=== PATIENT | male | born 1970 | race Caucasian/White ===

== ENCOUNTER 2023-12-30 06:36 | Outpatient (CLI) | payer OTHER ==
[2023-12-30 07:47] LABS: HEMATOCRIT 46.6 % (39.0-48.0); HEMOGLOBIN 15.8 g/dL (13-16.00); MEAN CELL VOLUME 82.6 fL (80.0-100.00); MEAN CORPUSCULAR HGB CONC 33.9 g/dl (32.0-36.0); PLATELET COUNT 253 K/uL (150-450); RED BLOOD COUNT 5.64 M/uL (4.00-6.00); RED CELL DISTRIBUTION WIDTH 13.7 % (11.5-14.5)
[2023-12-30 08:28] LABS: ALBUMIN 3.9 gm/dL (3.4-5.0); BILIRUBIN TOTAL 0.7 mg/dL (0.3-1.2); CALCIUM 9.2 mg/dL (8.5-10.1); CHOL HDL RATIO 3.9 (0-5.0); CREATININE SERUM 0.97 mg/dL (0.70-1.30); GFR 81.59; GLOBULINA 3.7 G/DL (2.4-3.5); POTASSIUM 3.56 mEq/L (3.5-5.1); T4 TOTAL 9.61 UG/DL (4.5-12.1); TOTAL PROTEIN 7.6 gm/dL (6.4-8.2); TSH 1.56 uIU/mL (0.358-3.74)
[2023-12-30 08:34] LABS: PROSTATIC SPECIFIC ANTIGEN 5.98 NG/ML (0.010-4.00)
[2023-12-30 09:12] LABS: URINE APPEARANCE Clear; URINE BILIRRUBIN Negative (NEGATIVE); URINE BLOOD Trace; URINE COLOR Yellow; URINE GLUCOSE Negative (NEGATIVE); URINE LEUKOCYTE Trace; URINE NITRATE Negative; URINE PROTEIN Negative (NEGATIVE); URINE UROBILINOGEN 0.2 E.U./dl
[2023-12-30 09:16] LABS: URINE BACTERIA 8.8 uL (0.0-1933); URINE RBC 4.8 uL (0.0-20.8); URINE WBC 4.7 uL (0.0-23.2)
[2023-12-30 09:44] LABS: URINE EPITHELIAL CELLS 0.9 uL (0.0-38.8)
== END 2023-12-30 06:38 | disposition home or self-care (01) ==
LOC: LAB 06:36
PROVIDERS: ATTEND General Practice
DX: I10 Essential (primary) hypertension (principal); N40.0 Benign prostatic hyperplasia without lower urinary tract symptoms

== ENCOUNTER 2023-12-30 07:10 | Outpatient (CLI) | payer OTHER | END 2023-12-30 07:22 | disposition home or self-care (01) | LOC: SONOGRAMA 07:10 | PROVIDERS: ATTEND General Practice | DX: R10.11 Right upper quadrant pain (principal); R10.31 Right lower quadrant pain ==